=== PATIENT | male | born 1945 | race Hispanic/Latino ===

== ENCOUNTER 2020-02-27 09:58 | Emergency (ER) | payer OTHER, SELFPAY ==
[2020-02-27 10:53] LABS: Absolute Lymphocytes (CBC) 1.4 K/uL (0.7-4.9); Basophils % 0.6 % (0-1.3); Lymphocytes % 25.4 % (15.3-44.8); MPV 8.2 fL (7.6-11.3)
[2020-02-27] MEDS ORDERED: HYDRALAZINE HCL 20 MG/ML VIAL ONE (10:57)
[2020-02-27 11:15] LABS: ALT/SGPT 60 U/L (12-78); AST/SGOT 51 U/L (15-37); Albumin 3.6 g/dL (3.4-5.0); Alkaline Phosphatase 76 U/L (45-117); BUN Blood Urea Nitrogen 21 mg/dL (7-18); Bicarbonate 30 mmol/L (21-32); Bilirubin Direct < 0.1 mg/dL (0-0.2); Bilirubin Total 0.3 mg/dL (0.2-1.0); Glucose Level 121 mg/dL (74-106); Protein, Total 7.7 g/dL (6.4-8.2); Sodium Level 141 mmol/L (136-145)
--- NOTE | 2020-02-27 11:43 | EDPHYS ---
Physician Documentation [facility] Name: Addy Garcia Age: 74 yrs Sex: Male : 1945 Arrival Date: 02/27/2020 Time: 10:01 Bed 19 Private MD: ED Physician Srikanth Bone HPI: 02/26 11:39 This 74 yrs old Male presents to ER via Ambulatory with complaints of High jr8 Blood Pressure. 11:39 The patient has elevated blood pressure and discovered this at [facility]. Onset: The jr8 symptoms/episode began/occurred today. Associated signs and symptoms: The patient has no apparent associated signs or symptoms. Severity of symptoms: At its worst the blood pressure was severe, in the emergency department the blood pressure is unchanged. The patient has not experienced similar symptoms in the past. The patient has not recently seen a physician. Historical: - Allergies: 10:20 No Known Allergies; ca1 - Home Meds: 10:20 None [Active]; ca1 - PMHx: 10:20 None; ca1 - PSHx: 10:20 None; ca1 - Immunization history:: Pneumococcal vaccine is not up to date, Flu vaccine is up to date. - Social history:: Smoking status: Patient denies any tobacco usage or history of. ROS: 11:39 Eyes: Negative for injury, pain, redness, and discharge, ENT: Negative for injury, jr8 pain, and discharge, Neck: Negative for injury, pain, and swelling, Cardiovascular: Negative for chest pain, palpitations, and edema, Respiratory: Negative for shortness of breath, cough, wheezing, and pleuritic chest pain, Abdomen/GI: Negative for abdominal pain, nausea, vomiting, diarrhea, and constipation, Back: Negative for injury and pain, MS/Extremity: Negative for injury and deformity, Skin: Negative for injury, rash, and discoloration, Neuro: Negative for headache, weakness, numbness, tingling, and seizure. Exam: 11:39 Eyes: Pupils equal round and reactive to light, extra-ocular motions intact. Lids and jr8 lashes normal. Conjunctiva and sclera are non-icteric and not injected. Cornea within normal limits. Periorbital areas with no swelling, redness, or edema. ENT: Nares patent. No nasal discharge, no septal abnormalities noted. Tympanic membranes are normal and external auditory canals are clear. Oropharynx with no redness, swelling, or masses, exudates, or evidence of obstruction, uvula midline. Mucous membranes moist. Neck: Trachea midline, no thyromegaly or masses palpated, and no cervical lymphadenopathy. Supple, full range of motion without nuchal rigidity, or vertebral point tenderness. No Meningismus. Cardiovascular: Regular rate and rhythm with a normal S1 and S2. No gallops, murmurs, or rubs. Normal PMI, no JVD. No pulse deficits. Respiratory: Lungs have equal breath sounds bilaterally, clear to auscultation and percussion. No rales, rhonchi or wheezes noted. No increased work of breathing, no retractions or nasal flaring. Abdomen/GI: Soft, non-tender, with normal bowel sounds. No distension or tympany. No guarding or rebound. No evidence of tenderness throughout. Back: No spinal tenderness. No costovertebral tenderness. Full range of motion. Skin: Warm, dry with normal turgor. Normal color with no rashes, no lesions, and no evidence of cellulitis. MS/ Extremity: Pulses equal, no cyanosis. Neurovascular intact. Full, normal range of motion. Neuro: Awake and alert, GCS 15, oriented to person, place, time, and situation. Cranial nerves II-XII grossly intact. Motor strength 5/5 in all extremities. Sensory grossly intact. Cerebellar exam normal. Normal gait. 11:40 ECG was reviewed by the Attending Physician. [facility] Vital Signs: 10:15 BP 224 / 100; Pulse 81; Resp 17 S; Temp 97(TE); Pulse Ox 100% on R/A; Weight 90.72 kg ca1 (R); Height 5 ft. 11 in. (180.34 cm) (R); Pain 0/10; 10:48 BP 193 / 93; Pulse 74; Resp 16 S; Pulse Ox 100% on R/A; jd3 11:32 BP 177 / 93; Pulse 74; Resp 16 S; Pulse Ox 100% on R/A; jd3 10:15 Body Mass Index 27.89 (90.72 kg, 180.34 cm) ca1 MDM: 10:17 Patient medically screened. [facility] 11:39 Data reviewed: vital signs, nurses notes, lab test result(s), EKG. Data interpreted: jr8 Pulse oximetry: on room air is 100 %. Interpretation: normal. Counseling: I had a detailed discussion with the patient and/or guardian regarding: the historical points, exam findings, and any diagnostic results supporting the discharge/admit diagnosis, lab results, the need for outpatient follow up, a family practitioner, to return to the emergency department if symptoms worsen or persist or if there are any questions or concerns that arise at home. 02/26 10:30 Order name: CBC with Diff [facility] 02/26 10:30 Order name: Basic Metabolic Panel [facility] 02/26 10:30 Order name: LFT's [facility] 02/26 11:00 Order name: CBC with Automated Diff; Complete Time: 11:12 EDMS 02/26 11:15 Order name: Basic Metabolic Panel; Complete Time: 11:17 EDMS 02/26 11:15 Order name: Liver (Hepatic) Function; Complete Time: 11:17 EDMS 02/26 10:30 Order name: Urine Dipstick-Ancillary (obtain specimen); Complete Time: 11:49 [facility] 02/26 10:30 Order name: EKG - Nurse/Tech; Complete Time: 10:45 8 02/26 10:30 Order name: IV; Complete Time: 10:41 [facility] 02/26 10:31 Order name: EKG; Complete Time: 10:31 [facility] 02/26 11:50 Order name: Urine Dipstick--Ancillary (enter results) 02/26 11:59 Order name: Urine Dipstick-Ancillary; Complete Time: 13:28 EDMS EC:40 Rate is 72 beats/min. Rhythm is regular, Sinus Rhythm. Left axis deviation noted. TN jr8 interval is normal at 154 msec. QRS interval is normal at 92 msec. QT interval is normal at 390 msec. Q waves are Present in leads I, aVL. T waves are Normal. No ST changes noted. Clinical impression: LVH. Interpreted by me. Reviewed by me. Administered Medications: 10:45 Drug: hydrALAZINE 10 mg Route: IV; Rate: calculated rate; Site: right antecubital; jd3 11:45 Follow up: Response: No adverse reaction; IV Status: Completed infusion jd3 Disposition: 16:55 Co-signature as Attending Physician, Srikanth Bone MD I agree with the assessment and tw4 plan of care. Disposition: 02/27/20 11:42 Discharged to Home. Impression: Essential (primary) hypertension. - Condition is Stable. - Discharge Instructions: Hypertension, DASH Eating Plan. - Prescriptions for Lisinopril- Hydrochlorothiazide 20-12.5 mg Oral Tablet - take 1 tablet by ORAL route once daily; 30 tablet. - Medication Reconciliation Form, Thank You Letter, Antibiotic Education, Prescription Opioid Use form. - Follow up: Galindo Stroud DO; When: 1 week; Reason: Recheck today's complaints, Continuance of care, Re-evaluation by your physician. - Problem is new. - Symptoms have improved. Signatures: Dispatcher [employer] EDMS Elian Reynolds PA PA jr8 Luis Antonio Doyle RN RN jd3 Srikanth Bone MD MD tw4 Ana Molina RN RN ca1 Corrections: (The following items were deleted from the chart) 12:01 11:42 02/27/2020 11:42 Discharged to Home. Impression: Essential (primary) jd3 hypertension. Condition is Stable. Forms are Medication Reconciliation Form, Thank You Letter, Antibiotic Education, Prescription Opioid Use. Follow up: Galindo Stroud; When: 1 week; Reason: Recheck today's complaints, Continuance of care, Re-evaluation by your physician. Problem is new. Symptoms have improved. jr8
--- NOTE | 2020-02-27 11:43 | ER ---
Nurse's Notes [facility] Name: Addy Garcia Age: 74 yrs Sex: Male : 1945 Arrival Date: 02/27/2020 Time: 10:01 Bed 19 Private MD: Diagnosis: Essential (primary) hypertension Presentation: 02/26 10:15 Chief complaint: Patient states: [facility], took my BP, it said SBP ca1 225. Denies any symptoms at this time. Coronavirus screen: Client denies travel out of the [place] in the last 14 days. At this time, the client does not indicate any symptoms associated with coronavirus-19. Ebola Screen: Patient negative for fever greater than or equal to 101.5 degrees Fahrenheit, and additional compatible Ebola Virus Disease symptoms Patient denies exposure to infectious person. Patient denies travel to an Ebola-affected area in the 21 days before illness onset. No symptoms or risks identified at this time. Initial Sepsis Screen: Does the patient meet any 2 criteria? No. Patient's initial sepsis screen is negative. Does the patient have a suspected source of infection? No. Patient's initial sepsis screen is negative. Risk Assessment: Do you want to hurt yourself or someone else? Patient reports no desire to harm self or others. Onset of symptoms was February 27, 2020. 10:15 Method Of Arrival: Ambulatory ca1 10:15 Acuity: LUCIUS 2 ca1 Historical: - Allergies: 10:20 No Known Allergies; ca1 - Home Meds: 10:20 None [Active]; ca1 - PMHx: 10:20 None; ca1 - PSHx: 10:20 None; ca1 - Immunization history:: Pneumococcal vaccine is not up to date, Flu vaccine is up to date. - Social history:: Smoking status: Patient denies any tobacco usage or history of. Screenin:47 Abuse screen: Denies threats or abuse. Nutritional screening: No deficits noted. jd3 Tuberculosis screening: No symptoms or risk factors identified. Fall Risk IV access (20 points). Ambulatory Aid- None/Bed Rest/Nurse Assist (0 pts). Gait- Normal/Bed Rest/Wheelchair (0 pts) Mental Status- Oriented to own ability (0 pts). Total Avila Fall Scale indicates No Risk (0-24 pts). Assessment: 10:46 General: Appears in no apparent distress. comfortable, Behavior is calm, cooperative, jd3 appropriate for age. Pain: Denies pain. Neuro: Level of Consciousness is awake, alert, obeys commands, Oriented to person, place, time, situation. Cardiovascular: Denies chest pain, Capillary refill < 3 seconds Patient's skin is warm and dry. Respiratory: Airway is patent Respiratory effort is even, unlabored, Respiratory pattern is regular, symmetrical, Denies cough, shortness of breath. GI: No signs and/or symptoms were reported involving the gastrointestinal system. Abdomen is round non-distended, Abd is soft and non tender X 4 quads. : No signs and/or symptoms were reported regarding the genitourinary system. EENT: No signs and/or symptoms were reported regarding the EENT system. Derm: Skin is intact, Skin is dry, Skin is normal, Skin temperature is warm. Musculoskeletal: Circulation, motion, and sensation intact. Range of motion: intact in all extremities. 11:32 Reassessment: Patient appears in no apparent distress at this time. No changes from jd3 previously documented assessment. Patient and/or family updated on plan of care and expected duration. Pain level reassessed. Patient is alert, oriented x 3, equal unlabored respirations, skin warm/dry/pink. Patient denies pain at this time. 12:00 Reassessment: Patient appears in no apparent distress at this time. Patient and/or jd3 family updated on plan of care and expected duration. Pain level reassessed. Patient is alert, oriented x 3, equal unlabored respirations, skin warm/dry/pink. even and steady gait upon discharge. Patient denies pain at this time. Vital Signs: 10:15 BP 224 / 100; Pulse 81; Resp 17 S; Temp 97(TE); Pulse Ox 100% on R/A; Weight 90.72 kg ca1 (R); Height 5 ft. 11 in. (180.34 cm) (R); Pain 0/10; 10:48 BP 193 / 93; Pulse 74; Resp 16 S; Pulse Ox 100% on R/A; jd3 11:32 BP 177 / 93; Pulse 74; Resp 16 S; Pulse Ox 100% on R/A; jd3 10:15 Body Mass Index 27.89 (90.72 kg, 180.34 cm) ca1 ED Course: 10:01 Patient arrived in ED. ag5 10:13 Elian Reynolds PA is PHCP. jr8 10:13 Srikanth Bone MD is Attending Physician. jr8 10:20 Triage completed. ca1 10:20 Arm band placed on right wrist. ca1 10:21 Luis Antonio Doyle RN is Primary Nurse. jd3 10:40 Inserted saline lock: 20 gauge in right antecubital area, using aseptic technique. jd3 Blood collected. 10:41 LFT's Sent. jd3 10:41 Basic Metabolic Panel Sent. jd3 10:41 CBC with Diff Sent. jd3 10:47 Patient has correct armband on for positive identification. Placed in gown. Bed in low jd3 position. Call light in reach. Side rails up X 1. flow trader on. Pulse ox on. NIBP on. 10:55 EKG done, by ED staff, reviewed by Elian TAMEZ. em1 11:42 Galindo Stroud DO is Referral Physician. jr8 11:59 No provider procedures requiring assistance completed. IV discontinued, intact, jd3 bleeding controlled, No redness/swelling at site. Pressure dressing applied. Administered Medications: 10:45 Drug: hydrALAZINE 10 mg Route: IV; Rate: calculated rate; Site: right antecubital; jd3 11:45 Follow up: Response: No adverse reaction; IV Status: Completed infusion jd3 Outcome: 11:42 Discharge ordered by . jr8 11:59 Discharged to home ambulatory. jd3 11:59 Condition: stable 11:59 Discharge instructions given to patient, Instructed on discharge instructions, follow up and referral plans. medication usage, Demonstrated understanding of instructions, follow-up care, medications, Prescriptions given X 1. 12:01 Patient left the ED. jd3 Signatures: Brett Levine em1 Elian Reynolds PA PA jr8 Luis Antonio Doyle RN RN jAna Hall RN RN ca1 Dong Barth ag5
[2020-02-27 11:58] LABS: Urine Blood NEGATIVE (NEG); Urine Glucose NEGATIVE (NEG); Urine Protein NEGATIVE (NEG); Urine Specific Gravity 1.025 (1.005-1.030)
[2020-02-27 12:07] VITALS: TEMP 97; O2SAT 100
[2020-02-27 12:09] VITALS: BP 177/93
== END 2020-02-27 12:01 | disposition home or self-care (01) ==
LOC: ER 09:58
DX: I10 Essential (primary) hypertension (principal)
CPT/HCPCS: 36415; 80048; 80076; 81003; 85025; 93005; 96365; 99284; J0360